=== PATIENT | female | born 1980 | race American Indian/Alaskan Native ===

== ENCOUNTER 2017-01-29 10:16 | Outpatient (CLI) | payer OTHER ==
--- NOTE | 2017-01-29 13:07 | Mammography Report ---
BILATERAL DIGITAL DIAGNOSTIC MAMMOGRAM with CAD and ON bilateral BREAST ULTRASOUND: 01/29/17 CLINICAL: Breast Pain. COMPARISON:None. These are baseline studies. FINDINGS: The breasts are heterogeneously dense, which may obscure small masses in the breasts are sufficiently dense to limit the sensitivity of mammography.No mass, architectural distortion or suspicious calcifications. Ultrasound of the right breast (including all four quadrants and the retroareolar area) was performed and demonstrated a benign cyst at 10 o'clock 3 cm from the nipple measuring 7 x 4 x 6 mm. Otherwise normal fibroglandular and fatty structures. No solid mass or shadowing. Ultrasound of the left breast (including all four quadrants and the retroareolar area) was performed and demonstrated three benign cysts. A cyst at 2 o'clock 2 cm from the nipple measures 6 x 3 x 5 mm. A cyst at 2 o'clock 2 cm from nipple measures 5 x 3 x 5 mm and a retroareolar cyst measures 8 x 4 x 10 mm. No solid mass or shadowing. IMPRESSION: Bilateral benign cysts and no suspicious finding. BI-RADS CATEGORY: 2 -- Benign RECOMMENDATION: Routine mammographic screening based on ACS guidelines. COMMENT: Patient follow-up letters are generated by our [employer] application.
== END 2017-01-29 10:17 | disposition home or self-care (01) ==
LOC: SPVWC 10:16
PROVIDERS: ATTEND Family Medicine
DX: N60.01 Solitary cyst of right breast (principal); N60.02 Solitary cyst of left breast; N64.4 Mastodynia
CPT/HCPCS: 76641; G0204; 77066